=== PATIENT | male | born 1955 | race Caucasian/White ===

== ENCOUNTER 2023-10-02 19:10 | Emergency (ER) | payer MEDICARE ==
[~2023-10-02] VITALS: Ht 177.8 cm; Wt 81.8 kg
[2023-10-02 19:20] VITALS: TEMP 98.4
[2023-10-02] MEDS ORDERED: Cephalexin 500 MG CAP PO ONE (20:00)
[2023-10-02] MEDS ORDERED: CEPHALEXIN500 M1 PO (20:16)
[2023-10-02 20:32] VITALS: BP 154/92; PULSE 77
== END 2023-10-02 20:32 | disposition home or self-care (01) ==
LOC: COL.ER 19:10 → EDBD 19:10 → COL.ER 19:10
DX: S61.207A Unspecified open wound of left little finger without damage to nail, initial encounter (principal); W27.0XXA Contact with workbench tool, initial encounter